=== PATIENT | female | born 1950 | race African-American/Black ===

== ENCOUNTER 2018-05-10 15:15 | Inpatient (IN) | payer MEDICARE, MEDICAID ==
[~2018-05-10] VITALS: Ht 161.3 cm; Wt 52.2 kg
[~2018-05-10 15:15] MED LIST: IBUP100T53; SULF1TAB48 PO
[2018-05-10] MEDS ORDERED: ASPIRIN 81MG TABLET PO ONE (15:45)
[2018-05-10] MEDS ORDERED: ENOXAPARIN 60MG/0.6ML SYR SUBCUT ONE (15:45)
[2018-05-10] MEDS ORDERED: DILTIAZEM HCL 90MG TABLET PO ONE (15:45)
[2018-05-10] MEDS ORDERED: DILTIAZEM HCL 5MG/ML 5ML VIAL IV ONE (15:45)
[2018-05-10 16:10] LABS: BG BASE EXCESS -3.5 mmol/L (-2.0-2.0); BG CARBOXYHEMOGLOBIN 0.7 % (0.5-1.5); BG DEOXYHEMOGLOBIN 8.8 % (0.0-5.0); BG FRACTION INSPIRED OXYGEN 21; BG HCO3 ACT 19.5 mmol/L (22.0-26.0); BG METHEMOGLOBIN 0.3 % (0.0-1.5); BG OXYGEN SATURATION 91.1 % (92.0-98.5); BG OXYHEMOGLOBIN 90.2 % (94.0-97.0); BG PCO2 29.3 mmHg (35.0-45.0); BG PO2 63.5 mmHg (75.0-100.0); BG SAMPLE SITE LEFT RADIAL; BG TOTAL HEMOGLOBIN 12.8 g/dL (12.0-18.0); BG VENT MODE ROOM AIR
[2018-05-10 16:50] LABS: BASOPHILS % 0.8 % (0.0-2.0); EOSINOPHILS % 0.9 % (0.0-5.0); HEMATOCRIT. 37.9 % (36.0-48.0); HEMOGLOBIN. 11.9 g/dL (12.0-16.0); LYMPHOCYTES % 29.8 % (20.0-50.0); MEAN CORPUSCULAR HEMOGLOBIN 24.2 pg (28.0-32.0); MEAN PLATELET VOLUME 10.2 fl (7.4-10.4); MONOCYTES % 10.7 % (2.0-8.0); NEUTROPHILS % 57.8 % (40.0-76.0); PLATELET 191 x1000/uL (130-400); RED BLOOD CELL COUNT 4.92 mill/uL (4.2-5.4); RED CELL DISTRIBUTION WIDTH 18.2 % (11.6-14.6)
[2018-05-10 16:52] LABS: CHLORIDE 112 mEq/L (98-107)
[2018-05-10 16:55] LABS: INR 1.3; PARTIAL THROMBOPLASTIN TIME 28.9 sec (23.4-31.0); PROTHROMBIN TIME 12.8 sec (9.1-11.1)
[2018-05-10] MEDS ORDERED: IOHEXOL-350 100 ML BOTTLE ONE (18:06)
[2018-05-10] MEDS ORDERED: OXYCODONE HCL/ACETAMINOPHEN 5/325MG TABLET PO ONE (18:15)
[2018-05-10 20:07] LABS: CLARITY URINE CLEAR (CLEAR); COLOR URINE YELLOW (YELLOW); KETONES URINE NEGATIVE (NEGATIVE); LEUKOCYTE ESTERASE URINE NEGATIVE (NEGATIVE); NITRITE URINE NEGATIVE (NEGATIVE); OCCULT BLOOD URINE 1+ (NEGATIVE); PH URINE 5.5 (4.5-8.0); PROTEIN URINE 1+ (NEGATIVE); SPECIFIC GRAVITY URINE 1.068 (1.005-1.030); UROBILINOGEN URINE 0.2 E.U./dL (0.2-1.0)
[2018-05-10 21:40] VITALS: BP 117/68
[2018-05-11] VITALS: BP 102/52
[2018-05-11] MEDS: MORPHINE SULFATE 4 MG/ML CPJ (NOT FOR IM USE) IV PRN ×2 (02:28→16:43)
[2018-05-11 04:00] VITALS: BP 125/83
[2018-05-11] MEDS ORDERED: ENOXAPARIN 60MG/0.6ML SYR SUBCUT SCH (04:00)
[2018-05-11] MEDS: OMEPRAZOLE 20MG CAPSULE EXTENDED RELEASE PO SCH (06:37)
[2018-05-11 07:27] LABS: EOSINOPHILS % 2.2 % (0.0-5.0); HEMATOCRIT. 36.3 % (36.0-48.0); HEMOGLOBIN. 11.3 g/dL (12.0-16.0); LYMPHOCYTES % 28.4 % (20.0-50.0); MEAN CORPUSCULAR HEMOGLOBIN 24.1 pg (28.0-32.0); MEAN CORPUSCULAR VOLUME 77.6 fL (81.0-99.0); MEAN PLATELET VOLUME 10.6 fl (7.4-10.4); MONOCYTES % 13.5 % (2.0-8.0); NEUTROPHILS % 54.9 % (40.0-76.0); PLATELET 176 x1000/uL (130-400); RED BLOOD CELL COUNT 4.68 mill/uL (4.2-5.4); RED CELL DISTRIBUTION WIDTH 18.3 % (11.6-14.6)
[2018-05-11 08:00] VITALS: BP 126/76
[2018-05-11 08:10] LABS: CHLORIDE 111 mEq/L (98-107)
[2018-05-11] MEDS: ASPIRIN 81MG TABLET PO SCH (08:29)
[2018-05-11] MEDS ORDERED: METOPROLOL TARTRATE 50MG TABLET PO SCH (09:00)
[2018-05-11] MEDS ORDERED: IPRATROPIUM/ALBUTEROL 0.5-3(2.5)MG/3ML NEB HHN PRN (11:45)
[2018-05-11] MEDS ORDERED: HEPARIN 25,000 UNITS PREMIX 500 ML IV SCH (11:45)
[2018-05-11 12:00] VITALS: BP 110/60
[2018-05-11] MEDS: DILTIAZEM HCL 60MG TABLET PO SCH ×2 (14:15→21:33)
[2018-05-11] MEDS ORDERED: HEPARIN 80 UNITS/KG BOLUS IV SCH (16:15)
[2018-05-11] MEDS: HEPARIN 25,000 UNITS PREMIX 500 ML IV SCH (17:28)
[2018-05-11] MEDS ORDERED: HEPARIN BOLUS PRN aPTT <36 IV (19:00)
[2018-05-11] MEDS ORDERED: HEPARIN BOLUS PRN aPTT 37-44 IV (19:00)
[2018-05-11 20:00] VITALS: BP 124/67
[2018-05-11] MEDS: IPRATROPIUM/ALBUTEROL 0.5-3(2.5)MG/3ML NEB HHN SCH (20:24)
[2018-05-11] MEDS: GUAIFENESIN 600MG ER TABLET PO SCH (21:32)
[2018-05-12] VITALS: BP 114/77
[2018-05-12] MEDS: IPRATROPIUM/ALBUTEROL 0.5-3(2.5)MG/3ML NEB HHN SCH ×3 (01:33→20:26)
[2018-05-12 04:00] VITALS: BP 104/67
[2018-05-12] MEDS: DILTIAZEM HCL 60MG TABLET PO SCH ×3 (06:00→21:38)
[2018-05-12 06:53] LABS: BASOPHILS % 0.7 % (0.0-2.0); EOSINOPHILS % 2.1 % (0.0-5.0); HEMATOCRIT. 33.8 % (36.0-48.0); HEMOGLOBIN. 10.5 g/dL (12.0-16.0); LYMPHOCYTES % 21.6 % (20.0-50.0); MEAN CORPUSCULAR HEMOGLOBIN 24.1 pg (28.0-32.0); MEAN CORPUSCULAR VOLUME 77.5 fL (81.0-99.0); MONOCYTES % 14.6 % (2.0-8.0); PLATELET 170 x1000/uL (130-400); RED BLOOD CELL COUNT 4.36 mill/uL (4.2-5.4); RED CELL DISTRIBUTION WIDTH 18.5 % (11.6-14.6)
[2018-05-12] MEDS: OMEPRAZOLE 20MG CAPSULE EXTENDED RELEASE PO SCH (06:59)
[2018-05-12 07:09] LABS: CHLORIDE 110 mEq/L (98-107)
[2018-05-12] MEDS ORDERED: POTASSIUM CHLORIDE 20MEQ TABLET SR PO NR (09:15)
[2018-05-12] MEDS: ASPIRIN 81MG TABLET PO SCH (09:52)
[2018-05-12] MEDS: GUAIFENESIN 600MG ER TABLET PO SCH ×2 (09:52→21:38)
[2018-05-12 12:00] VITALS: BP 114/68
[2018-05-12] MEDS ORDERED: LIDOCAINE HCL 4% CREAM 76GM TUBE TP PRN (12:00)
[2018-05-12] MEDS: MORPHINE SULFATE 4 MG/ML CPJ (NOT FOR IM USE) IV PRN ×2 (12:10→21:37)
[2018-05-12 16:00] VITALS: BP 100/64
[2018-05-12] MEDS: SUCRALFATE 1 G/10 ML UDC PO SCH ×2 (19:27→21:00)
[2018-05-12 20:00] VITALS: BP 136/80
[2018-05-13] MEDS: IPRATROPIUM/ALBUTEROL 0.5-3(2.5)MG/3ML NEB HHN SCH ×4 (00:02→20:48)
[2018-05-13 04:00] VITALS: BP 128/83
[2018-05-13] MEDS: HEPARIN 25,000 UNITS PREMIX 500 ML IV SCH (06:08)
[2018-05-13 06:38] LABS: HEMATOCRIT. 31.8 % (36.0-48.0); HEMOGLOBIN. 10.3 g/dL (12.0-16.0); RED BLOOD CELL COUNT 4.17 mill/uL (4.2-5.4)
[2018-05-13] MEDS: PANTOPRAZOLE 40MG DR TABLET PO SCH (06:38)
[2018-05-13] MEDS: DILTIAZEM HCL 60MG TABLET PO SCH ×3 (06:38→21:03)
[2018-05-13] MEDS: SUCRALFATE 1 G/10 ML UDC PO SCH ×4 (06:38→20:59)
[2018-05-13 06:39] LABS: MEAN CORPUSCULAR HEMOGLOBIN 24.8 pg (28.0-32.0); MEAN CORPUSCULAR VOLUME 76.3 fL (81.0-99.0); MEAN PLATELET VOLUME 9.6 fl (7.4-10.4); PLATELET 170 x1000/uL (130-400)
[2018-05-13 07:00] LABS: CHLORIDE 110 mEq/L (98-107)
[2018-05-13 07:27] LABS: TOTAL IRON BINDING CAPACITY 294 ug/dL (250-450)
[2018-05-13 08:00] VITALS: BP 76/51
[2018-05-13] MEDS ORDERED: VANCOMYCIN 1 G PREMIX 200 ML IV SCH (09:30)
[2018-05-13] MEDS: GUAIFENESIN 600MG ER TABLET PO SCH ×2 (10:08→20:59)
[2018-05-13] MEDS: ASPIRIN 81MG TABLET PO SCH (10:08)
[2018-05-13] MEDS: CEFTRIAXONE 2 G in DEXTROSE 5% WATER 50 ML IV SCH (10:13)
[2018-05-13 10:30] VITALS: BP 114/65
[2018-05-13] MEDS: MORPHINE SULFATE 4 MG/ML CPJ (NOT FOR IM USE) IV PRN ×2 (10:36→20:59)
[2018-05-13] MEDS ORDERED: DOCUSATE SODIUM 100MG CAPSULE PO SCH (10:45)
[2018-05-13] MEDS ORDERED: BISACODYL 10MG SUPP PR NR (10:45)
[2018-05-13] MEDS: SODIUM HYPOCHLORITE SOLUTION (0.5%)FULL STRENGTH TOP SCH (11:56)
[2018-05-13] MEDS: APIXABAN 5 MG TABLET PO SCH ×2 (11:56→16:52)
[2018-05-13 12:00] VITALS: BP 125/66
[2018-05-13 12:05] LABS: PLATELET ESTIMATE NORMAL
[2018-05-13 16:00] VITALS: BP 111/33
[2018-05-13] MEDS: DOCUSATE SODIUM 100MG CAPSULE PO SCH (16:52)
[2018-05-13] MEDS: VANCOMYCIN 500 MG PREMIX 100 ML IV SCH (18:07)
[2018-05-13 20:00] VITALS: BP 109/69
[2018-05-13] MEDS ORDERED: VANCOMYCIN 750 MG PREMIX 150 ML IV SCH (21:30)
[2018-05-14] VITALS: BP 132/76
[2018-05-14] MEDS: IPRATROPIUM/ALBUTEROL 0.5-3(2.5)MG/3ML NEB HHN SCH ×4 (01:55→19:50)
[2018-05-14 03:52] VITALS: BP 124/81
[2018-05-14] MEDS: MORPHINE SULFATE 4 MG/ML CPJ (NOT FOR IM USE) IV PRN ×2 (03:58→16:44)
[2018-05-14] MEDS: VANCOMYCIN 500 MG PREMIX 100 ML IV SCH ×2 (06:25→17:26)
[2018-05-14] MEDS: DILTIAZEM HCL 60MG TABLET PO SCH ×4 (06:25→21:38)
[2018-05-14] MEDS: SUCRALFATE 1 G/10 ML UDC PO SCH ×4 (06:25→20:43)
[2018-05-14] MEDS: PANTOPRAZOLE 40MG DR TABLET PO SCH (06:25)
[2018-05-14 08:00] VITALS: BP 100/62
[2018-05-14] MEDS: DOCUSATE SODIUM 100MG CAPSULE PO SCH ×2 (08:08→17:26)
[2018-05-14] MEDS: GUAIFENESIN 600MG ER TABLET PO SCH ×2 (08:09→20:44)
[2018-05-14] MEDS: CEFTRIAXONE 2 G in DEXTROSE 5% WATER 50 ML IV SCH (08:09)
[2018-05-14] MEDS: ASPIRIN 81MG TABLET PO SCH (08:09)
[2018-05-14] MEDS: SODIUM HYPOCHLORITE SOLUTION (0.5%)FULL STRENGTH TOP SCH (08:09)
[2018-05-14] MEDS: APIXABAN 5 MG TABLET PO SCH ×2 (08:09→17:26)
[2018-05-14] MEDS ORDERED: BISACODYL 10MG SUPP PR PRN (09:00)
[2018-05-14 12:00] VITALS: BP 110/51
[2018-05-14] MEDS ORDERED: SORBITOL 70% SOLN 30ML PO SCH (12:30)
[2018-05-14] MEDS: FERROUS SULFATE 300MG/5ML UDC PO SCH ×2 (12:54→17:26)
[2018-05-14 15:14] LABS: FOLIC ACID (FOLATE) SERUM 16.9 ng/mL (>5.38)
[2018-05-14 16:00] VITALS: BP 139/84
[2018-05-14 20:00] VITALS: BP 143/83
[2018-05-14] MEDS: HYDROCODONE/ACETAMINOPHEN 5/325MG TABLET PO PRN (20:43)
[2018-05-15 00:12] VITALS: BP 118/58
[2018-05-15 04:00] VITALS: BP 120/60
[2018-05-15 06:15] LABS: BASOPHILS % 1.2 % (0.0-2.0); EOSINOPHILS % 7.2 % (0.0-5.0); HEMATOCRIT. 32.5 % (36.0-48.0); HEMOGLOBIN. 10.4 g/dL (12.0-16.0); MEAN CORPUSCULAR HEMOGLOBIN 24.5 pg (28.0-32.0); MEAN CORPUSCULAR VOLUME 76.1 fL (81.0-99.0); MEAN PLATELET VOLUME 9.4 fl (7.4-10.4); MONOCYTES % 14.1 % (2.0-8.0); NEUTROPHILS % 42.5 % (40.0-76.0); PLATELET 175 x1000/uL (130-400); RED BLOOD CELL COUNT 4.27 mill/uL (4.2-5.4); RED CELL DISTRIBUTION WIDTH 17.8 % (11.6-14.6)
[2018-05-15] MEDS: VANCOMYCIN 500 MG PREMIX 100 ML IV SCH (06:31)
[2018-05-15] MEDS: PANTOPRAZOLE 40MG DR TABLET PO SCH (06:32)
[2018-05-15] MEDS: SUCRALFATE 1 G/10 ML UDC PO SCH ×4 (06:32→20:52)
[2018-05-15 06:38] LABS: CHLORIDE 109 mEq/L (98-107)
[2018-05-15 07:02] LABS: VANCOMYCIN TROUGH 8.4 ug/mL (5.0-10.0)
[2018-05-15] MEDS: FERROUS SULFATE 300MG/5ML UDC PO SCH ×3 (07:40→17:11)
[2018-05-15] MEDS: IPRATROPIUM/ALBUTEROL 0.5-3(2.5)MG/3ML NEB HHN SCH ×3 (08:15→15:26)
[2018-05-15 08:43] VITALS: BP 93/57
[2018-05-15] MEDS: DOCUSATE SODIUM 100MG CAPSULE PO SCH ×3 (09:00→17:00)
[2018-05-15] MEDS ORDERED: DIATR MEGLU/DIATRIZOATE SOLN 120ML ONE (09:58)
[2018-05-15] MEDS ORDERED: EZ-HD SUSPENSION(BARIUM SULFATE 340GM) PO ONE (10:05)
[2018-05-15] MEDS: CEFTRIAXONE 2 G in DEXTROSE 5% WATER 50 ML IV SCH (10:42)
[2018-05-15] MEDS: APIXABAN 5 MG TABLET PO SCH ×2 (10:43→17:09)
[2018-05-15] MEDS: GUAIFENESIN 600MG ER TABLET PO SCH ×2 (10:43→21:06)
[2018-05-15] MEDS: ASPIRIN 81MG TABLET PO SCH (10:43)
[2018-05-15] MEDS: SODIUM HYPOCHLORITE SOLUTION (0.5%)FULL STRENGTH TOP SCH (10:48)
[2018-05-15] MEDS: HYDROCODONE/ACETAMINOPHEN 5/325MG TABLET PO PRN (11:17)
[2018-05-15 11:51] VITALS: BP 152/93
[2018-05-15] MEDS: LORAZEPAM 2MG/ML CPJ IV PRN (12:24)
[2018-05-15] MEDS ORDERED: POTASSIUM CHLORIDE 20MEQ TABLET SR PO SCH (14:15)
[2018-05-15] MEDS ORDERED: MORPHINE SULFATE 4 MG/ML CPJ (NOT FOR IM USE) IV PRN (14:30)
[2018-05-15 15:45] VITALS: BP 122/77
[2018-05-15] MEDS ORDERED: VANCOMYCIN 750 MG PREMIX 150 ML IV SCH (17:00)
[2018-05-15] MEDS: DILTIAZEM HCL 60MG TABLET PO SCH ×2 (17:11→21:08)
[2018-05-15 20:00] VITALS: BP 151/67
[2018-05-15] MEDS: VANCOMYCIN 750 MG PREMIX 150 ML IV SCH (20:52)
[2018-05-16] VITALS: BP 125/61
[2018-05-16] MEDS: LORAZEPAM 2MG/ML CPJ IV PRN (00:46)
[2018-05-16] MEDS: IPRATROPIUM/ALBUTEROL 0.5-3(2.5)MG/3ML NEB HHN SCH ×4 (01:37→20:23)
[2018-05-16 04:00] VITALS: BP 118/58
[2018-05-16 04:12] LABS: HIV SCREEN 4G Non Reactive (Non Reactive)
[2018-05-16] MEDS: DILTIAZEM HCL 60MG TABLET PO SCH ×2 (05:00→12:11)
[2018-05-16] MEDS: SUCRALFATE 1 G/10 ML UDC PO SCH ×3 (06:45→17:25)
[2018-05-16] MEDS: PANTOPRAZOLE 40MG DR TABLET PO SCH (06:45)
[2018-05-16 07:16] LABS: BASOPHILS % 0.7 % (0.0-2.0); EOSINOPHILS % 5.7 % (0.0-5.0); HEMATOCRIT. 36.3 % (36.0-48.0); HEMOGLOBIN. 11.7 g/dL (12.0-16.0); LYMPHOCYTES % 26.7 % (20.0-50.0); MEAN CORPUSCULAR HEMOGLOBIN 24.3 pg (28.0-32.0); MEAN CORPUSCULAR VOLUME 75.2 fL (81.0-99.0); MEAN PLATELET VOLUME 9.2 fl (7.4-10.4); MONOCYTES % 14.7 % (2.0-8.0); NEUTROPHILS % 52.2 % (40.0-76.0); PLATELET 204 x1000/uL (130-400); RED BLOOD CELL COUNT 4.82 mill/uL (4.2-5.4); RED CELL DISTRIBUTION WIDTH 17.9 % (11.6-14.6)
[2018-05-16 07:37] LABS: CHLORIDE 106 mEq/L (98-107)
[2018-05-16] MEDS: VANCOMYCIN 750 MG PREMIX 150 ML IV SCH (08:36)
[2018-05-16] MEDS: GUAIFENESIN 600MG ER TABLET PO SCH (08:36)
[2018-05-16] MEDS: CEFTRIAXONE 2 G in DEXTROSE 5% WATER 50 ML IV SCH (08:36)
[2018-05-16] MEDS: DOCUSATE SODIUM 100MG CAPSULE PO SCH ×2 (08:36→17:00)
[2018-05-16] MEDS: ASPIRIN 81MG TABLET PO SCH (08:36)
[2018-05-16] MEDS: APIXABAN 5 MG TABLET PO SCH ×2 (08:36→17:27)
[2018-05-16] MEDS: FERROUS SULFATE 300MG/5ML UDC PO SCH ×3 (08:53→17:25)
[2018-05-16] MEDS: SODIUM HYPOCHLORITE SOLUTION (0.5%)FULL STRENGTH TOP SCH (09:00)
[2018-05-16] MEDS: HYDROCODONE/ACETAMINOPHEN 5/325MG TABLET PO PRN (11:12)
[2018-05-16 12:00] VITALS: BP 100/62
[2018-05-16 13:34] VITALS: BP 109/62
[2018-05-16] MEDS ORDERED: POTASSIUM CHLORIDE 10MEQ TABLET SR PO NR (14:00)
[2018-05-16] MEDS ORDERED: CARVEDILOL 3.125 MG TABLET PO NR (14:00)
[2018-05-16 16:00] VITALS: BP 102/57
[2018-05-16 20:00] VITALS: BP 124/56
[2018-05-16] MEDS ORDERED: CARVEDILOL 3.125 MG TABLET PO SCH (21:00)
== END 2018-05-16 21:40 | DRG 720 ==
LOC: ER 15:15 → 8WST 19:08 → EDBEDREQTM 19:11 → EDBEDREQ 19:11 → ENRESERV 20:36
PROVIDERS: ADMIT Internal Medicine; ATTEND Internal Medicine
DX: A41.59 Other Gram-negative sepsis (principal); I26.99 Other pulmonary embolism without acute cor pulmonale; J96.01 Acute respiratory failure with hypoxia; I50.21 Acute systolic (congestive) heart failure; J18.9 Pneumonia, unspecified organism; D68.59 Other primary thrombophilia; I42.9 Cardiomyopathy, unspecified; I11.0 Hypertensive heart disease with heart failure; E44.1 Mild protein-calorie malnutrition; E87.8 Other disorders of electrolyte and fluid balance, not elsewhere classified; I48.91 Unspecified atrial fibrillation; L97.519 Non-pressure chronic ulcer of other part of right foot with unspecified severity; I73.9 Peripheral vascular disease, unspecified; L97.529 Non-pressure chronic ulcer of other part of left foot with unspecified severity; K21.9 Gastro-esophageal reflux disease without esophagitis; Z60.2 Problems related to living alone; F41.9 Anxiety disorder, unspecified; R79.89 Other specified abnormal findings of blood chemistry; I08.1 Rheumatic disorders of both mitral and tricuspid valves; D50.9 Iron deficiency anemia, unspecified; L03.116 Cellulitis of left lower limb; L03.115 Cellulitis of right lower limb; K57.90 Diverticulosis of intestine, part unspecified, without perforation or abscess without bleeding; K80.20 Calculus of gallbladder without cholecystitis without obstruction; K56.41 Fecal impaction; R13.10 Dysphagia, unspecified; N39.0 Urinary tract infection, site not specified; B96.1 Klebsiella pneumoniae [K. pneumoniae] as the cause of diseases classified elsewhere; E87.6 Hypokalemia; K29.70 Gastritis, unspecified, without bleeding; K25.9 Gastric ulcer, unspecified as acute or chronic, without hemorrhage or perforation; T39.395A Adverse effect of other nonsteroidal anti-inflammatory drugs [NSAID], initial encounter; Y92.89 Other specified places as the place of occurrence of the external cause; Z86.711 Personal history of pulmonary embolism; Z79.01 Long term (current) use of anticoagulants; Z79.899 Other long term (current) drug therapy; Z68.20 Body mass index [BMI] 20.0-20.9, adult
CPT/HCPCS: 36415; 36600; 71045; 71275; 74176; 74220; 80048; 80053; 80076; 80202; 81003; 82375; 82607; 82728; 82746; 82805; 83540; 83550; 83605; 83690; 83880; 84443; 84484; 85025; 85610; 85730; 87040; 87077; 87086; 87186; 87389; 93005; 93306; 93970; 94640; 96372; 96374; 97022; 97162; 99291; C1893; J0696; J1644; J1650; J2060; J2270; J3370; J7030; J7040; J7060; J7620; Q9963; Q9967

== ENCOUNTER 2019-08-16 01:58 | Emergency (ER) | payer MEDICARE, MEDICAID ==
[~2019-08-16] VITALS: Ht 157.5 cm; Wt 50.0 kg
[2019-08-16 05:07] LABS: HEMATOCRIT 39.3 % (36.0-48.0); HEMOGLOBIN 12.8 g/dL (12.0-16.0); MEAN CORPUSCULAR HEMOGLOBIN 27.2 pg (28.0-32.0); MEAN CORPUSCULAR VOLUME 83.4 fL (81.0-99.0); PLATELET 208 x1000/uL (130-400); RED BLOOD CELL COUNT 4.71 mill/uL (4.2-5.4); RED CELL DISTRIBUTION WIDTH 14.9 % (11.6-14.6)
[2019-08-16 08:48] VITALS: BP 123/85
== END 2019-08-16 09:21 | disposition home or self-care (01) ==
LOC: ER 02:25
DX: L76.22 Postprocedural hemorrhage of skin and subcutaneous tissue following other procedure (principal); Y83.8 Other surgical procedures as the cause of abnormal reaction of the patient, or of later complication, without mention of misadventure at the time of the procedure; Y92.9 Unspecified place or not applicable; I10 Essential (primary) hypertension; Z94.5 Skin transplant status
CPT/HCPCS: 36415; 85027; 99283; A4565

== ENCOUNTER 2020-07-20 19:13 | Inpatient (IN) | payer MEDICARE, MEDICAID ==
[~2020-07-20] VITALS: Ht 162.6 cm; Wt 61.2 kg
[2020-07-20] MEDS ORDERED: ONDANSETRON HCL 4MG/2ML INJ IV STA (20:18)
[2020-07-20] MEDS ORDERED: MORPHINE SULFATE 4 MG/ML CPJ (NOT FOR IM USE) IV STA (20:18)
[2020-07-20] MEDS ORDERED: VANCOMYCIN 1 G PREMIX 200 ML IV ONE (20:30)
[2020-07-20] MEDS ORDERED: SODIUM CHLORIDE 0.9% 1,000 ML IV ONE (20:30)
[2020-07-20] MEDS ORDERED: PIPERACILLIN/TAZ 3.375G PREMIX 50 ML IV ONE (20:30)
[2020-07-20 21:08] LABS: EOSINOPHILS % 2.3 % (0.0-5.0); HEMATOCRIT. 39.3 % (36.0-48.0); HEMOGLOBIN. 12.4 g/dL (12.0-16.0); LYMPHOCYTES % 27.6 % (20.0-50.0); MEAN CORPUSCULAR HEMOGLOBIN 25.9 pg (28.0-32.0); MEAN PLATELET VOLUME 8.4 fl (7.4-10.4); MONOCYTES % 9.9 % (2.0-8.0); NEUTROPHILS % 59.2 % (40.0-76.0); PLATELET 212 x1000/uL (130-400); RED CELL DISTRIBUTION WIDTH 15.3 % (11.6-14.6)
[2020-07-20 21:15] LABS: INR 1.2; PROTHROMBIN TIME 12.2 sec (9.6-11.0)
[2020-07-20 21:17] LABS: CHLORIDE 110 mEq/L (98-107)
[2020-07-21 03:30] VITALS: BP 108/70
[2020-07-21 08:00] VITALS: BP 121/95
[2020-07-21] MEDS ORDERED: PIPERACILLIN/TAZ 3.375G PREMIX 50 ML IV SCH (09:30)
[2020-07-21] MEDS ORDERED: ACETAMINOPHEN 325MG TABLET PO PRN (09:30)
[2020-07-21] MEDS ORDERED: CLONIDINE 0.1MG TABLET PO PRN (09:30)
[2020-07-21] MEDS: ONDANSETRON HCL 4MG/2ML INJ IV PRN (11:21)
[2020-07-21] MEDS: MORPHINE SULFATE 2 MG/ML CPJ (NOT FOR IM USE) IV PRN ×2 (11:21→20:40)
[2020-07-21] MEDS ORDERED: DEXTROSE 50% WATER 50ML SYRINGE IV PRN (11:30)
[2020-07-21] MEDS: BLOOD SUGAR DIAGNOSTIC STRIP TEST SCH ×3 (11:40→20:24)
[2020-07-21] MEDS: DIPHENHYDRAMINE 50MG/ML VIAL IV PRN (11:43)
[2020-07-21 12:00] VITALS: BP 163/88
[2020-07-21] MEDS ORDERED: PIPERACILLIN/TAZOBACTAM 3.375 G in DEXT 5% WATER 100 ML IV SCH (12:00)
[2020-07-21] MEDS: INSULIN LISPRO 100 UNITS/ML SUBCUT SCH ×3 (12:10→20:25)
[2020-07-21 16:00] VITALS: BP 139/85
[2020-07-21] MEDS ORDERED: VANCOMYCIN 1 G PREMIX 200 ML IV SCH (16:00)
[2020-07-21] MEDS: VANCOMYCIN 500 MG PREMIX 100 ML IV SCH ×2 (16:15→23:45)
[2020-07-21] MEDS: PIPERACILLIN/TAZOBACTAM 3.375 G in DEXT 5% WATER 100 ML IV SCH ×2 (18:08→23:15)
[2020-07-21 20:00] VITALS: BP 141/78
[2020-07-22] VITALS: BP 150/88
[2020-07-22] MEDS: ONDANSETRON HCL 4MG/2ML INJ IV PRN (00:06)
[2020-07-22] MEDS: DIPHENHYDRAMINE 50MG/ML VIAL IV PRN (00:07)
[2020-07-22 04:00] VITALS: BP 159/75
[2020-07-22] MEDS: PIPERACILLIN/TAZOBACTAM 3.375 G in DEXT 5% WATER 100 ML IV SCH ×4 (05:10→23:29)
[2020-07-22] MEDS: BLOOD SUGAR DIAGNOSTIC STRIP TEST SCH ×4 (06:32→20:43)
[2020-07-22] MEDS: INSULIN LISPRO 100 UNITS/ML SUBCUT SCH ×4 (06:32→20:43)
[2020-07-22 06:37] LABS: BASOPHILS % 0.9 % (0.0-2.0); EOSINOPHILS % 3.8 % (0.0-5.0); HEMATOCRIT. 35.7 % (36.0-48.0); HEMOGLOBIN. 11.6 g/dL (12.0-16.0); LYMPHOCYTES % 38.8 % (20.0-50.0); MEAN CORPUSCULAR HEMOGLOBIN 26.4 pg (28.0-32.0); MEAN CORPUSCULAR VOLUME 81.6 fL (81.0-99.0); MEAN PLATELET VOLUME 8.3 fl (7.4-10.4); MONOCYTES % 11.5 % (2.0-8.0); PLATELET 189 x1000/uL (130-400); RED BLOOD CELL COUNT 4.38 mill/uL (4.2-5.4); RED CELL DISTRIBUTION WIDTH 15.5 % (11.6-14.6)
[2020-07-22 06:49] LABS: CHLORIDE 111 mEq/L (98-107)
[2020-07-22 07:02] LABS: LDL CHOLESTEROL 68 mg/dL (5-100); PHOSPHORUS 3.8 mg/dL (2.5-4.9)
[2020-07-22 07:04] LABS: HDL CHOLESTEROL 51 mg/dL (40-59)
[2020-07-22 08:00] VITALS: BP 162/103
[2020-07-22] MEDS: VANCOMYCIN 500 MG PREMIX 100 ML IV SCH (08:48)
[2020-07-22 12:00] VITALS: BP 148/77
[2020-07-22] MEDS ORDERED: NALOXONE HCL 0.4 MG/ML 1ML VIAL IV PRN (14:30)
[2020-07-22] MEDS: HYDROMORPHONE HCL/PF 2MG/ML CPJ IV PRN (14:56)
[2020-07-22] MEDS: ENOXAPARIN 60MG/0.6ML SYR SUBCUT SCH (15:19)
[2020-07-22 16:00] VITALS: BP 146/106
[2020-07-22] MEDS: VANCOMYCIN 750 MG PREMIX 150 ML IV SCH (18:36)
[2020-07-22 20:00] VITALS: BP 134/73
[2020-07-23 00:01] VITALS: BP 99/55
[2020-07-23] MEDS: ENOXAPARIN 60MG/0.6ML SYR SUBCUT SCH ×2 (02:19→15:05)
[2020-07-23] MEDS: HYDROMORPHONE HCL/PF 2MG/ML CPJ IV PRN ×2 (03:33→16:15)
[2020-07-23 03:43] VITALS: BP 130/98
[2020-07-23] MEDS: PIPERACILLIN/TAZOBACTAM 3.375 G in DEXT 5% WATER 100 ML IV SCH ×3 (05:19→17:10)
[2020-07-23] MEDS: VANCOMYCIN 750 MG PREMIX 150 ML IV SCH ×2 (05:43→17:59)
[2020-07-23] MEDS: INSULIN LISPRO 100 UNITS/ML SUBCUT SCH ×5 (06:23→21:00)
[2020-07-23] MEDS: BLOOD SUGAR DIAGNOSTIC STRIP TEST SCH ×4 (06:23→20:42)
[2020-07-23 06:49] LABS: CHLORIDE 106 mEq/L (98-107)
[2020-07-23 07:02] LABS: BASOPHILS % 1.2 % (0.0-2.0); EOSINOPHILS % 4.4 % (0.0-5.0); HEMATOCRIT. 36.3 % (36.0-48.0); HEMOGLOBIN. 11.6 g/dL (12.0-16.0); LYMPHOCYTES % 50.8 % (20.0-50.0); MEAN CORPUSCULAR HEMOGLOBIN 25.9 pg (28.0-32.0); MEAN CORPUSCULAR VOLUME 81.1 fL (81.0-99.0); MEAN PLATELET VOLUME 8.8 fl (7.4-10.4); MONOCYTES % 10.7 % (2.0-8.0); NEUTROPHILS % 32.9 % (40.0-76.0); PLATELET 199 x1000/uL (130-400); RED BLOOD CELL COUNT 4.48 mill/uL (4.2-5.4); RED CELL DISTRIBUTION WIDTH 15.1 % (11.6-14.6)
[2020-07-23 08:00] VITALS: BP 117/60
[2020-07-23 12:00] VITALS: BP 115/81
[2020-07-23 16:00] VITALS: BP 125/64
[2020-07-23 20:00] VITALS: BP 144/95
[2020-07-24] VITALS (34 sets, daily range): BP systolic 88–181; BP diastolic 43–115
[2020-07-24] MEDS: HYDROMORPHONE HCL/PF 2MG/ML CPJ IV PRN ×2 (01:23→11:11)
[2020-07-24] MEDS ORDERED: DILTIAZEM HCL 125 MG in DEXT 5% WATER 100 ML IV PRN (01:30)
[2020-07-24] MEDS: ENOXAPARIN 60MG/0.6ML SYR SUBCUT SCH ×2 (03:29→15:06)
[2020-07-24 05:37] LABS: CHLORIDE 106 mEq/L (98-107)
[2020-07-24 05:41] LABS: BASOPHILS % 1.2 % (0.0-2.0); EOSINOPHILS % 4.4 % (0.0-5.0); HEMATOCRIT. 35.5 % (36.0-48.0); HEMOGLOBIN. 11.5 g/dL (12.0-16.0); MEAN CORPUSCULAR HEMOGLOBIN 26.5 pg (28.0-32.0); MEAN CORPUSCULAR VOLUME 81.5 fL (81.0-99.0); MEAN PLATELET VOLUME 8.6 fl (7.4-10.4); NEUTROPHILS % 35.4 % (40.0-76.0); PLATELET 182 x1000/uL (130-400); RED BLOOD CELL COUNT 4.36 mill/uL (4.2-5.4); RED CELL DISTRIBUTION WIDTH 14.9 % (11.6-14.6)
[2020-07-24 05:50] LABS: VANCOMYCIN TROUGH 16.6 ug/mL (5.0-10.0)
[2020-07-24] MEDS: BLOOD SUGAR DIAGNOSTIC STRIP TEST SCH ×6 (07:00→20:48)
[2020-07-24] MEDS: INSULIN LISPRO 100 UNITS/ML SUBCUT SCH ×5 (07:00→20:48)
[2020-07-24] MEDS: ONDANSETRON HCL 4MG/2ML INJ IV PRN (11:44)
[2020-07-24] MEDS ORDERED: METOCLOPRAMIDE HCL 10MG/2ML VIAL IV PRN (15:30)
[2020-07-24] MEDS ORDERED: DILTIAZEM HCL 30MG TABLET PO NR (17:30)
[2020-07-24] MEDS: DILTIAZEM HCL 30MG TABLET PO SCH (21:41)
[2020-07-25] VITALS (7 sets, daily range): BP systolic 117–163; BP diastolic 52–93
[2020-07-25] MEDS: ENOXAPARIN 60MG/0.6ML SYR SUBCUT SCH ×2 (03:24→19:07)
[2020-07-25] MEDS: DILTIAZEM HCL 30MG TABLET PO SCH ×2 (05:42→12:48)
[2020-07-25] MEDS: BLOOD SUGAR DIAGNOSTIC STRIP TEST SCH ×3 (06:27→17:20)
[2020-07-25] MEDS: INSULIN LISPRO 100 UNITS/ML SUBCUT SCH ×3 (07:42→17:50)
[2020-07-25] MEDS ORDERED: DILTIAZEM HCL 60MG TABLET PO SCH ×2 (19:00→22:00)
[2020-07-25] MEDS ORDERED: VERAPAMIL HCL 2.5 MG/1 ML 2ML VIAL IV PRN (19:00)
[2020-07-26] MEDS ORDERED: ENOXAPARIN 60MG/0.6ML SYR SUBCUT SCH (03:00)
== END 2020-07-25 20:30 | DRG 197 ==
LOC: ER 19:13 → 7EST 23:09 → EDBEDREQTM 23:14 → EDBEDREQ 23:14 → EDBEDREQSVC 23:14 → ENRESERV 07-21 01:52 → 8WST 07-23 17:00 → MICUNO 07-24 01:11 → 6WST 07-24 17:00
PROVIDERS: ADMIT Internal Medicine; ATTEND Internal Medicine
DX: I73.9 Peripheral vascular disease, unspecified (principal); L97.519 Non-pressure chronic ulcer of other part of right foot with unspecified severity; L97.529 Non-pressure chronic ulcer of other part of left foot with unspecified severity; Z20.828 Contact with and (suspected) exposure to other viral communicable diseases; D68.59 Other primary thrombophilia; K21.9 Gastro-esophageal reflux disease without esophagitis; D72.819 Decreased white blood cell count, unspecified; L90.5 Scar conditions and fibrosis of skin; I87.8 Other specified disorders of veins; I42.9 Cardiomyopathy, unspecified; I50.20 Unspecified systolic (congestive) heart failure; I11.0 Hypertensive heart disease with heart failure; I48.20 Chronic atrial fibrillation, unspecified; Z79.01 Long term (current) use of anticoagulants; Z87.891 Personal history of nicotine dependence; Z86.711 Personal history of pulmonary embolism
CPT/HCPCS: 36415; 71045; 73620; 80048; 80053; 80061; 80202; 82962; 83036; 83605; 83735; 83880; 84100; 84443; 84484; 85025; 87635; 93005; 93306; 93923; 93970; 96365; 97162; 97530; 99285; J1170; J1200; J1650; J2270; J2405; J2543; J2765; J3370; J7030; J7040; J7060